=== PATIENT | female | born 1950 | race Caucasian/White ===

== ENCOUNTER 2024-07-17 18:27 | Emergency (ER) | payer MEDICARE ==
[~2024-07-17] VITALS: Ht 167.6 cm; Wt 74.8 kg
[2024-07-17] MEDS ORDERED: CEFEPIME 1 GM VIAL ONE (19:25)
[2024-07-17] MEDS: HYDROCODONE/APAP 5/325MG TABLET PO ONE (19:48)
[2024-07-17] MEDS ORDERED: HYDROCODONE/APAP 5/325MG TABLET ONE (19:48)
[2024-07-17] MEDS ORDERED: TRAM50TA2 PO (20:26)
[2024-07-17] MEDS ORDERED: KETO10TA2 PO (20:26)
[2024-07-17 21:00] VITALS: BP 144/87; TEMP 98.1; O2SAT 99
== END 2024-07-17 21:01 | disposition home or self-care (01) ==
LOC: ER 18:34
DX: S60.221A Contusion of right hand, initial encounter (principal); S80.01XA Contusion of right knee, initial encounter; S90.31XA Contusion of right foot, initial encounter; Z79.899 Other long term (current) drug therapy; W01.0XXA Fall on same level from slipping, tripping and stumbling without subsequent striking against object, initial encounter; Y93.89 Activity, other specified; Y92.091 Bathroom in other non-institutional residence as the place of occurrence of the external cause; Y99.8 Other external cause status
CPT/HCPCS: 99284; 73521; 72220; 73630; 73130; 73560; 71100; J7060; J0692